=== PATIENT | female | born 1955 | race Caucasian/White ===

== ENCOUNTER 2017-07-12 17:31 | Emergency (ER) | payer MEDICARE, OTHER ==
[~2017-07-12] VITALS: Ht 165.1 cm; Wt 148.3 kg
[~2017-07-12 17:31] MED LIST: ACULAR1 DROP OD; ADVAIR 250-501 EACH INH; ASPIR-TRIN325 MG PO; CYMBALTA60 MG PO; DIFLUCAN150 MG PO; DILAUDID4 MG PO; DILAUDID8 MG PO; DOXYCYCLINE HY100 MG PO; FLONASE2 SPRAY; FUROSEMIDE40 MG PO; GABAPENTIN600 MG; KEFLEX500 MG PO; LANTUS100 UNITS/; LANTUS100 UNITS/ SUB-Q; LASIX20 MG PO; LIPITOR20 MG PO; LIPITOR40 MG PO; LISINOPRIL10 MG PO; METFORMIN HCL1000 M1 PO; MIRAPEX ER1.5 MG PO; NAPROSYN500 MG PO; NEURONTIN100 MG PO; NEURONTIN600 MG PO; NORCO 5-325 TA1 EACH PO; OCUVITE TABLET1 EAC1 PO; OPANA5 MG PO; OSTERA TABLET1 EACH PO; OXYCODONE HCL10 MG PO; OXYCODONE HCL5 MG PO; OXYCONTIN20 MG PO; PREDNISONE20 MG PO; SINGULAIR10 MG PO; SYMBICORT 16010.2 GM IH; SYMBICORT 16010.2 GM INH; VITAMIN D1000 UNI1 PO; VITAMIN D250000 UNIT PO; VITD3; XOPENEX HFA15 GM IH
[2017-07-12] MEDS ORDERED: NORTRIPTYLINE H10 MG PO (17:53)
[2017-07-12] MEDS ORDERED: CEFDINIR300 MG PO (19:22)
== END 2017-07-12 20:02 | disposition home or self-care (01) ==
LOC: ED 17:31
PROC: 0T9B70Z Drainage of Bladder with Drainage Device, Via Natural or Artificial Opening (ICD-10-PCS; principal; 2017-07-12)
DX: S89.91XA Unspecified injury of right lower leg, initial encounter (principal); N39.0 Urinary tract infection, site not specified; I10 Essential (primary) hypertension; E11.9 Type 2 diabetes mellitus without complications; J45.909 Unspecified asthma, uncomplicated; F17.200 Nicotine dependence, unspecified, uncomplicated; W19.XXXA Unspecified fall, initial encounter; Z90.49 Acquired absence of other specified parts of digestive tract; Z98.51 Tubal ligation status; Z88.2 Allergy status to sulfonamides; Z79.899 Other long term (current) drug therapy; Z79.4 Long term (current) use of insulin; Z79.82 Long term (current) use of aspirin
CPT/HCPCS: 51701; 73560; 73610; 81001; 87077; 87088; 87186; 96374; 96375; 99283; J0696; J2270

== ENCOUNTER 2018-04-21 18:51 | Emergency (ER) | payer MEDICARE, OTHER ==
[~2018-04-21] VITALS: Ht 165.1 cm; Wt 148.3 kg
[~2018-04-21 18:51] MED LIST changes: +CEFDINIR300 MG PO; +NORTRIPTYLINE H10 MG PO
[2018-04-21] MEDS ORDERED: MIRAPEX ER1.5 MG PO (19:51)
[2018-04-21] MEDS ORDERED: ZANAFLEX2 M1 PO (19:51)
[2018-04-21] MEDS ORDERED: TOPAMAX25 MG PO (19:52)
[2018-04-21] MEDS ORDERED: XOPENEX HFA15 GM INH (19:53)
== END 2018-04-21 22:19 | disposition home or self-care (01) ==
LOC: ED 18:51
DX: G89.29 Other chronic pain (principal); M25.552 Pain in left hip; E11.9 Type 2 diabetes mellitus without complications; I10 Essential (primary) hypertension; J45.909 Unspecified asthma, uncomplicated; F17.200 Nicotine dependence, unspecified, uncomplicated; Z88.2 Allergy status to sulfonamides; Z79.899 Other long term (current) drug therapy; Z79.4 Long term (current) use of insulin; Z79.82 Long term (current) use of aspirin
CPT/HCPCS: 99282

== ENCOUNTER 2018-06-02 21:36 | Emergency (ER) | payer MEDICARE, OTHER ==
[~2018-06-02] VITALS: Ht 165.1 cm; Wt 137.4 kg
[~2018-06-02 21:36] MED LIST changes: +TOPAMAX25 MG PO; +XOPENEX HFA15 GM INH; +ZANAFLEX2 M1 PO
[2018-06-02] MEDS ORDERED: VICTOZA 2-0.6 MG/0.1 SUB-Q (22:00)
[2018-06-02] MEDS ORDERED: METFORMIN HCL500 MG PO (22:00)
[2018-06-02] MEDS ORDERED: CBD (22:01)
[2018-06-02] MEDS ORDERED: HUMALOG100 UNIT/2 SUB-Q (22:02)
[2018-06-02] MEDS ORDERED: PYRIDIUM200 MG PO (23:26)
[2018-06-02] MEDS ORDERED: CEPHALEXIN500 MG PO (23:26)
== END 2018-06-02 23:34 | disposition home or self-care (01) ==
LOC: ED 21:36
DX: N39.0 Urinary tract infection, site not specified (principal); J02.9 Acute pharyngitis, unspecified; E11.9 Type 2 diabetes mellitus without complications; I10 Essential (primary) hypertension; J45.909 Unspecified asthma, uncomplicated; F17.200 Nicotine dependence, unspecified, uncomplicated; Z88.2 Allergy status to sulfonamides; Z79.899 Other long term (current) drug therapy; Z79.4 Long term (current) use of insulin; Z79.84 Long term (current) use of oral hypoglycemic drugs; Z79.82 Long term (current) use of aspirin
CPT/HCPCS: 81001; 87880; 99283

== ENCOUNTER 2018-12-14 12:19 | Emergency (ER) | payer MEDICARE, OTHER ==
[~2018-12-14] VITALS: Ht 165.1 cm; Wt 137.4 kg
[~2018-12-14 12:19] MED LIST changes: +CBD; +CEPHALEXIN500 MG PO; +HUMALOG100 UNIT/2 SUB-Q; +METFORMIN HCL500 MG PO; +PYRIDIUM200 MG PO; +VICTOZA 2-0.6 MG/0.1 SUB-Q
[2018-12-14] MEDS ORDERED: TESSALON PERLE100 MG PO (13:26)
[2018-12-14] MEDS ORDERED: ZITHROMAX250 MG PO (13:26)
[2018-12-14] MEDS ORDERED: ROBAFEN AC ORA473 ML PO (13:26)
== END 2018-12-14 13:44 | disposition home or self-care (01) ==
LOC: ED 12:19
DX: J40 Bronchitis, not specified as acute or chronic (principal); E11.9 Type 2 diabetes mellitus without complications; I10 Essential (primary) hypertension; G47.30 Sleep apnea, unspecified; F17.200 Nicotine dependence, unspecified, uncomplicated; Z88.2 Allergy status to sulfonamides; Z79.4 Long term (current) use of insulin; Z79.899 Other long term (current) drug therapy; Z79.82 Long term (current) use of aspirin
CPT/HCPCS: 71045; 99283-25

== ENCOUNTER 2019-10-31 15:29 | Observation (INO) | payer MEDICARE, OTHER ==
[~2019-10-31] VITALS: Ht 165.1 cm; Wt 135.8 kg
[~2019-10-31 15:29] MED LIST changes: -GABAPENTIN600 MG; -METFORMIN HCL500 MG PO; +ROBAFEN AC ORA473 ML PO; +TESSALON PERLE100 MG PO; +ZITHROMAX250 MG PO
[2019-10-31] MEDS ORDERED: SYMBICORT 80-10.2 GM INH (15:52)
[2019-10-31] MEDS ORDERED: CLOPIDOGREL75 MG PO (15:55)
[2019-10-31] MEDS ORDERED: TOPIRAMATE50 MG PO (15:56)
[2019-10-31] MEDS ORDERED: TIZANIDINE HCL2 MG PO (15:57)
[2019-10-31] MEDS ORDERED: ATORVASTATIN CA80 MG PO (15:58)
[2019-10-31] MEDS ORDERED: ALBUTEROL2.5 MG/3 M INH (16:35)
[2019-10-31] MEDS ORDERED: ASPIRIN325 MG PO (16:36)
[2019-10-31] MEDS ORDERED: BYDUREON B2 MG/0.85 SUB-Q (16:37)
[2019-10-31] MEDS ORDERED: PLAVIX75 MG PO (16:38)
[2019-10-31] MEDS ORDERED: FLONASE ALLERG9.9 ML NAS (16:39)
[2019-10-31] MEDS ORDERED: LASIX40 MG PO (16:40)
[2019-10-31] MEDS ORDERED: GABAPENTIN600 MG PO (16:41)
[2019-10-31] MEDS ORDERED: HUMALOG100 UNIT/1 SUB-Q (16:42)
[2019-10-31] MEDS ORDERED: ATROVENT HFA12.9 GM INH (16:43)
[2019-10-31] MEDS ORDERED: LANTUS100 UNITS/ SUB-Q (16:44)
[2019-10-31] MEDS ORDERED: METFORMIN HCL500 MG PO (16:47)
[2019-10-31] MEDS ORDERED: XOPENEX HFA15 GM INH (16:47)
[2019-10-31] MEDS ORDERED: LISINOPRIL20 MG PO (16:47)
[2019-10-31] MEDS ORDERED: METOPROLOL TART50 MG PO (16:48)
[2019-10-31] MEDS ORDERED: MIRAPEX ER1.5 MG PO (16:49)
[2019-10-31] MEDS ORDERED: SINGULAIR10 MG PO (16:50)
--- NOTE | 2019-10-31 21:42 | NUR ---
PT ARRIVED TO ROOM 127 @2015 VIA STRETCHER. PT AMBULATED TO BATHROOM AND THEN TO BED. PT STEADY ON FEET. PT STATES THAT SHE HAS CHRONIC NECK AND BACK PAIN, DENIES ANY ACUTE PAIN AT THIS TIME. LUNGS SOUND CLEAR/DIM, SATS 98-100% ON ROOM AIR. DENIES CHEST PAIN AND SOB. R.T. IN TO GIVE BREATHING TREATMENT. MEDS TAKEN WITHOUT ISSUE, SANDWICH BOX PROVIDED.
--- NOTE | 2019-10-31 23:24 | NUR ---
PT CALLED, UP TO BATHROOM WITH SBA. PT STATES SHE IS FEELING SLIGHTLY SOB, STATES "WHEN I GET HOT, IT MAKES ME COUGH." PERSONAL FAN PROVIDED FOR PATIENT. SATS REMAIN 98% ON RA. HR NO LONGER IN AFIB, NOW SINUS YASEMIN WITH OCCASIONAL PAC'S. HR:50'S.
--- NOTE | 2019-11-01 00:07 | NUR ---
ASSESSMENT COMPLETED, SEE DOCUMENTATION. PT STATES SHE NO LONGER FEELS SOB, STATES "ONLY WHEN I COUGH." DENIES CHEST PAIN. LUNGS REMAIN CLEAR/DIM SPO2 94-95% ON RA. HR REMAINS SINUS YASEMIN, RATE 54, WITH OCCASIONAL PAC'S. PT DENIES REQUESTS AT THIS TIME, CALL LIGHT WITHIN REACH.
--- NOTE | 2019-11-01 02:19 | NUR ---
PT APPEARS TO BE SLEEPING AT THIS TIME. RESPIRATIONS ARE EVEN AND UNLABORED, RR: 22, SPO2:94% ON RA, HR:57. WILL ALLOW FOR REST AND CONTINUE TO MONITOR.
--- NOTE | 2019-11-01 04:14 | NUR ---
PT CALLED, UP TO BATHROOM TO VOID, PT AMBULATES WITHOUT ASSISTANCE ONCE CABLES ARE UNPLUGGED. PT CONTINUES TO DENY PAIN. LUNGS REMAIN CLEAR/DIM, ROOM AIR. HR SINUS RHYTHM, OCCASIONAL PAC'S, RATE 60'S. STANDING WEIGHT OBTAINED. CALL LIGHT REMAINS WITHIN REACH, PT DENIES REQUESTS.
--- NOTE | 2019-11-01 05:50 | NUR ---
IN TO GIVE MORNING MEDS. PT DENIES NEEDS AT THIS TIME. CALL LIGHT WITHIN REACH.
--- NOTE | 2019-11-01 07:40 | EKG ---
[facility] [address] [place] [address] Signed Atrial fibrillation Low voltage QRS Cannot rule out Anterior infarct , age undetermined Abnormal ECG When compared with ECG of 01-MAY-2017 11:35, Atrial fibrillation has replaced Sinus rhythm Minimal criteria for Anterior infarct are now present Nonspecific T wave abnormality now evident in Inferior leads Confirmed by FIDEL WALL MD ([id number]) on 11/01/2019 7:39:42 AM Electronically Signed By: FIDEL WALL MD 11/01/19 0740 PATIENT NAME: ИВАН CORONEL Electrocardiogram DATE OF : 59 PHYSICIAN: FIDEL WALL MD REPORT #: [id number] REPORT IS CONFIDENTIAL AND NOT TO BE RELEASED WITHOUT AUTHORIZATION
--- NOTE | 2019-11-01 07:45 | NUR ---
Patient laying in bed watching tv, alert and awake. Ambulated independently to toilet, voided 350 mls. Denies SOB or dizziness with ambulation. Returns to bed independently. Vital signs taken, assessment complete. Lung sounds diminished throughout all lobes. 2+ edema noted in bilateral lower extremities. Ice chips provided, denies further needs at this time. Call light within reach.
--- NOTE | 2019-11-01 08:12 | NUR ---
Dr. Richardson in room discussing POC with patient
--- NOTE | 2019-11-01 08:45 | NUR ---
Patient sitting up at edge of bed with feet on floor. AM medications given. IV site patent. IV magnesium running at 50 mls/hr. Patient denies further needs at this time, call light within reach.
[2019-11-01] MEDS ORDERED: METFORMIN HCL500 M1 PO (09:07)
--- NOTE | 2019-11-01 09:10 | NUR ---
Case management in room with patient discussing POC
--- NOTE | 2019-11-01 09:20 | NUR ---
In and spoke with Rin. She lives in [place] in her mom's trailer who is now . She lives with her 3 sisters and alternate care for a disabled sister. Pt has lost near 100 pounds following CABG in Dec. Needs CHF education, started the Cardiac rehab program here, but stopped due to agoraphobia. She does cont. to use the foot pedal bike she used there. She is unclear what she should eat with CHF and Rn's will enter referral for Cardiac rehab and dietary. Discussed if pt has seen the Stop light protocol for CHF and she has, but does not follow currently. Will need further education. Pt states she has long history of asthma, but has not needed home 02 or nebulizer in > 6 months.
--- NOTE | 2019-11-01 09:35 | NUR ---
Imaging in room to perform ECHO. IV magnesium continues infusing at 50 mls/hr. Breakfast delivered. Patient denies further needs at this time, call light within reach.
--- NOTE | 2019-11-01 11:05 | NUR ---
Patient on telephone, sitting up at edge of bed with feet on floor. Saline locked. 100% of breakfast eaten. Cardiac nurse in room to assess, will return this afternoon. Patient denies needs at this time, call light within reach.
--- NOTE | 2019-11-01 11:47 | NUR ---
Patient ambulated to toilet, voids 350 mls. Patient reports feeling "shaky and fuzzy, just like when my blood sugar is low." BS of 214. Vital signs taken, blood pressure of 76/45 (54) and a pulse of 50. Dr. Richardson notified.
--- NOTE | 2019-11-01 11:53 | NUR ---
Patient ambulated to toilet with 2 person SBA. Patient educated on importance of "taking it slow" while walking. BM produced. Patient returned to bed with 1 person SBA. Patient states, "I feel less fuzzy than I did before." Denies further needs at this time, call light within reach.
--- NOTE | 2019-11-01 12:30 | NUR ---
Patient laying in bed, lunch delivered. Patient sits up at the edge of the bed with feet on floor. Vitals taken, blood pressure of 109/50 (65) and pulse of 54. 3 units of insulin given with meal. Patient states "I don't feel fuzzy anymore." Denies further needs at this time, call light within reach.
--- NOTE | 2019-11-01 13:57 | NUR ---
Certified Heart Failure Nurse Notes: Consultation recieved for CHF education. Two unsuccessful attempts to visit with patient today. Patient known to this service- had initiated cardiac rehabilitation in May for CABG and ID. Attended a few session patient states dropped out of program due to agraphobia. At that time PHQ-9 score was 15. Will return to talk to patient about heart failure management and to encourage resuming cardiac rehab if able. Date of echocardiogram -pending Admit Wt.: 137.22 kg Admit BNP: 609
--- NOTE | 2019-11-01 14:00 | NUR ---
PATIENT RESTING IN BED AT THIS TIME. PT DENIES FEELING "FUZZY" OR LIGHTHEADED AT THIS TIME, BUT BLOOD PRESSURES ARE STILL LOW. 1300 DOSE OF LASIX BEING HELD. WILL CONTINUE TO MONITOR CLOSELY.
--- NOTE | 2019-11-01 14:34 | NUR ---
BLOOD PRESSURES HAVE CONTINUED TO RUN LOW. DR. WALL UPDATED AGAIN AND 1300 DOSE OF LASIX STILL BEING HELD. 1500 LABS TO BE DRAWN. PT RESTING AND DENIES FURTHER NEEDS. LAST BP 107/43. CONTINUE TO MONITOR.
[2019-11-01] MEDS ORDERED: APPLE CIDER VI300 MG PO (17:28)
[2019-11-01] MEDS ORDERED: CINNAMON500 MG PO (17:29)
[2019-11-01] MEDS ORDERED: VITAMIN D32000 UNI1 PO (17:29)
[2019-11-01] MEDS ORDERED: VITAMIN C500 M1 PO (17:29)
[2019-11-01] MEDS ORDERED: SYMBICORT 80-10.2 GM INH (17:30)
[2019-11-01] MEDS ORDERED: ACULAR5 ML OP (17:31)
[2019-11-01] MEDS ORDERED: PROMETHAZINE-C473 ML PO (17:32)
--- NOTE | 2019-11-01 18:58 | NUR ---
PATIENT FINISHING HER DESSERT AND TOLERATED DINNER WELL. CHF AND AFIB EDUCATION PROVIDED AT LENGTH. PT ALSO HAD A GOOD VISIT WITH CHF EDUCATOR. PT'S SISTER IN ROOM AND ATTENTIVE TO PATIENT. PT'S WEIGHT 302.1 LB AT THIS TIME.
--- NOTE | 2019-11-01 19:48 | NUR ---
SHIFT REPORT RECEIVED FROM JANIE CHOW. PT CALLED, UP TO BATHROOM WITHOUT ASSISTANCE ONCE CORDS WERE UNPLUGGED, STEADY ON FEET. PT SLIGHTLY SOB WITH ACTIVITY, RETURNED TO BED. PT DENIES PAIN AT THIS TIME. CALL LIGHT WITHIN REACH, DENIES REQUESTS AT THIS TIME.
--- NOTE | 2019-11-01 20:27 | NUR ---
ASSESSMENT COMPLETED, SEE DOCUMENTATION. LUNGS SOUND CLEAR/DIM, MORE AERATION NOTED COMPARED TO LAST NIGHT. DENIES CHEST PAIN AND SOB. IV PATENT, SALINE LOCKED. EVENING MEDICATIONS TAKEN WITHOUT ISSUE. VITAL SIGNS STABLE. PT DENIES NEEDS, CALL LIGHT WITHIN REACH. DISCUSSED PLAN OF CARE FOR THE NIGHT, QUESTIONS ANSWERED.
--- NOTE | 2019-11-01 21:47 | NUR ---
PT AMBULATED TO BATHROOM, VOIDED 400ML AND RETURNED TO BED. PT TOLERATED WELL. NO FURTHER REQUESTS AT THIS TIME.
--- NOTE | 2019-11-02 00:06 | NUR ---
PT SLEEPING SOUNDLY AT THIS TIME, NO APPARENT DISTRESS. RESPIRATIONS EVEN AND UNLABORED. HR: 58, RR: 20. WILL ALLOW FOR REST AND CONTINUE TO MONITOR.
--- NOTE | 2019-11-02 00:38 | NUR ---
PT CALLED, UP TO BATHROOM TO VOID 800ML AND THEN RETURNED TO BED, TOLERATED WELL. ASSESSMENT COMPLETED, NO CHANGES FROM PREVIOUS. VITAL SIGNS STABLE. NO FUTHER REQUESTS, CALL LIGHT WITHIN REACH.
--- NOTE | 2019-11-02 02:21 | NUR ---
PT SLEEPING, NO APPARENT DISTRESS. RESPIRATIONS EVEN AND UNLABORED. RR:22, HR:59. WILL ALLOW FOR REST AND CONTINUE TO MONITOR.
--- NOTE | 2019-11-02 05:15 | NUR ---
ASSESSMENT COMPLETED, NO CHANGES FROM PREVIOUS. PT UP TO BATHROOM, VOIDED 500ML AND RETURNED TO BED. PT TOLERATED ACTIVITY WELL. VITAL SIGNS STABLE. STANDING WEIGHT THIS MORNIN.4 LBS. CALL LIGHT WITHIN REACH, PT DENIES REQUESTS.
--- NOTE | 2019-11-02 08:18 | NUR ---
PATIENT UUP AND SITTING AT BEDSIDE THIS AM. DENIES ANY FEELING OF SHORTNESS OF BREATH OR THE "CHEST TIGHTNESS". PT EAGER TO GO HOME TODAY. PT AMB TO BATHROOM TO VOID 500 ML. PLAN IS FOR PATIENT TO LIKELY D/C HOME TODAY, AFTER ECHO RESULTS ARE BACK. BREAKFAST ORDERED. ASSESSMENT COMPLETE. DENIES FURTHER NEEDS.
[2019-11-02] MEDS ORDERED: LISINOPRIL10 MG PO (09:49)
[2019-11-02] MEDS ORDERED: POTASSIUM CHLO10 ME1 PO (09:50)
--- NOTE | 2019-11-02 10:42 | NUR ---
PATIENT TO D/C HOME. PT UP TO BATHROOM TO VOID AGAIN. WAITING ON PHARMACY TO SEE PATIENT BEFORE D/C.
== END 2019-11-02 11:06 | disposition home or self-care (01) ==
LOC: ED 15:29 → CCU 15:31
PROVIDERS: ADMIT Internal Medicine
DX: I11.0 Hypertensive heart disease with heart failure (principal); I50.9 Heart failure, unspecified; E11.40 Type 2 diabetes mellitus with diabetic neuropathy, unspecified; G25.81 Restless legs syndrome; G47.30 Sleep apnea, unspecified; M48.02 Spinal stenosis, cervical region; J42 Unspecified chronic bronchitis; J45.909 Unspecified asthma, uncomplicated; E78.5 Hyperlipidemia, unspecified; I25.2 Old myocardial infarction; I48.91 Unspecified atrial fibrillation; I25.10 Atherosclerotic heart disease of native coronary artery without angina pectoris; E83.42 Hypomagnesemia; Z88.2 Allergy status to sulfonamides; Z91.11 Patient's noncompliance with dietary regimen; Z87.891 Personal history of nicotine dependence; Z79.02 Long term (current) use of antithrombotics/antiplatelets; Z95.1 Presence of aortocoronary bypass graft; Z79.82 Long term (current) use of aspirin; Z79.4 Long term (current) use of insulin; Z79.51 Long term (current) use of inhaled steroids; Z79.899 Other long term (current) drug therapy
CPT/HCPCS: 36415; 71045; 80048; 80053; 83735; 83880; 84443; 84484; 85025; 85610; 93005; 93010; 93306; 94640; 96361; 96365; 96374; 96376; 99284-25; G0378; J1650; J1815; J1940; J3475; J7040

== ENCOUNTER 2019-12-22 23:00 | Emergency (ER) | payer MEDICARE, OTHER ==
[~2019-12-22] VITALS: Ht 165.1 cm; Wt 135.6 kg
[~2019-12-22 23:00] MED LIST changes: +ACULAR5 ML OP; +ALBUTEROL2.5 MG/3 M INH; +APPLE CIDER VI300 MG PO; +ASPIRIN325 MG PO; +ATORVASTATIN CA80 MG PO; +ATROVENT HFA12.9 GM INH; +BYDUREON B2 MG/0.85 SUB-Q; +CINNAMON500 MG PO; +CLOPIDOGREL75 MG PO; +FLONASE ALLERG9.9 ML NAS; +GABAPENTIN600 MG PO; +HUMALOG100 UNIT/1 SUB-Q; +LASIX40 MG PO; +LISINOPRIL20 MG PO; +METFORMIN HCL500 M1 PO; +METFORMIN HCL500 MG PO; +METOPROLOL TART50 MG PO; +PLAVIX75 MG PO; +POTASSIUM CHLO10 ME1 PO; +PROMETHAZINE-C473 ML PO; +SYMBICORT 80-10.2 GM INH; +TIZANIDINE HCL2 MG PO; +TOPIRAMATE50 MG PO; +VITAMIN C500 M1 PO; +VITAMIN D32000 UNI1 PO
[2019-12-23] MEDS ORDERED: ULTRAM50 MG PO (01:11)
--- NOTE | 2019-12-23 13:31 | EKG ---
[facility] [address] [place] [address] Signed Normal sinus rhythm Low voltage QRS Cannot rule out Anterior infarct (cited on or before 31-OCT-2019) Abnormal ECG When compared with ECG of 31-OCT-2019 15:38, Sinus rhythm has replaced Atrial fibrillation Confirmed by AYDEN CHARLES MD ([id number]) on 12/23/2019 1:31:20 PM Electronically Signed By: AYDEN CHARLES MD 12/23/19 1331 PATIENT NAME: ИВАН CORONEL Electrocardiogram DATE OF : 59 PHYSICIAN: AYDEN CHARLES MD REPORT #: [id number] REPORT IS CONFIDENTIAL AND NOT TO BE RELEASED WITHOUT AUTHORIZATION
== END 2019-12-23 01:21 | disposition home or self-care (01) ==
LOC: ED 23:00
DX: R07.89 Other chest pain (principal); E11.9 Type 2 diabetes mellitus without complications; I10 Essential (primary) hypertension; Z87.891 Personal history of nicotine dependence; Z88.2 Allergy status to sulfonamides; Z79.899 Other long term (current) drug therapy
CPT/HCPCS: 71046; 93005; 93010; 99285-25

== ENCOUNTER 2021-02-19 16:17 | Emergency (ER) | payer MEDICARE, OTHER ==
[~2021-02-19] VITALS: Ht 165.1 cm; Wt 137.0 kg
[~2021-02-19 16:17] MED LIST changes: +ULTRAM50 MG PO
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
[2021-02-19] MEDS ORDERED: WARFARIN SODIUM5 MG PO (16:36)
--- NOTE | 2021-02-20 13:46 | EKG ---
[facility] [address] [place] [address] Signed Atrial fibrillation Abnormal QRS-T angle, consider primary T wave abnormality Abnormal ECG When compared with ECG of 27-JAN-2021 00:05, Inverted T waves have replaced nonspecific T wave abnormality in Inferior leads Confirmed by AYDEN CHARLES MD ([id number]) on 02/20/2021 1:46:16 PM Electronically Signed By: AYDEN CHARLES MD 02/20/21 1346 PATIENT NAME: ИВАН CORONEL Electrocardiogram DATE OF : 59 PHYSICIAN: AYDEN CHARLES MD REPORT #: [id number] REPORT IS CONFIDENTIAL AND NOT TO BE RELEASED WITHOUT AUTHORIZATION
== END 2021-02-19 18:54 | disposition home or self-care (01) ==
LOC: ED 16:17
DX: R07.89 Other chest pain (principal); E11.9 Type 2 diabetes mellitus without complications; I10 Essential (primary) hypertension; G47.30 Sleep apnea, unspecified; F17.200 Nicotine dependence, unspecified, uncomplicated; Z88.2 Allergy status to sulfonamides; Z79.899 Other long term (current) drug therapy; Z79.01 Long term (current) use of anticoagulants; Z79.4 Long term (current) use of insulin
CPT/HCPCS: 71046; 80053; 81001; 83735; 84484; 85025; 85610; 93005; 93010; 99285-25; 99406

== ENCOUNTER 2021-11-11 17:12 | Emergency (ER) | payer MEDICARE, OTHER ==
[~2021-11-11] VITALS: Ht 165.1 cm; Wt 131.5 kg
[~2021-11-11 17:12] MED LIST changes: +WARFARIN SODIUM5 MG PO
--- OUTSIDE RECORDS SUMMARY | 2021-11-11 17:14 | XMS ---
PreManage Notification: ИВАН CORONEL Security Program Instructor Events No recent Security Events currently on file [facility] JESS NICHOLAS Internal Medicine: Cardiovascular Disease 11/07/2019-Current PHONE: Unknown LUCAS VALLEJO Physician Fur Dyer 11/07/2019-Current PHONE: [phone] [facility] has no Care Guidelines for this patient. Care History Medical/Surgical 02/20/2021 [facility] - PATIENT HAS A TABLE GAMES SUPERVISOR DR NICHOLAS AT [facility]- [phone] - LAST APT WITH TABLE GAMES SUPERVISOR 07/05/2020 NEXT APT SCHEDULED 02/28/2021 - RECENT ED VISIT RECORDS SENT TO TABLE GAMES SUPERVISOR FOR REVIEW PER REQUEST. 01/28/2021 [facility] - PATIENT WAS LAST SEEN BY PCP NOVEMBER 2020 AND HAD A VIRTUAL VISIT WITH PROVIDER DECEMBER 2020. PROVIDER OFFICE JUST RECEIVED PATIENT RECENT ED VISIT NOTE AND WILL CONTACT PATIENT TODAY FOR A FOLLOW UP APT. E.DMichael VISIT COUNT (12 MO.) [address] [facility] TOTAL 4 NOTE: Visits indicate total known visits. ED/UCC VISIT TRACKING (12 MO.) 11/11/2021 17:13 [facility] [place] TYPE: Emergency COMPLAINT: - VOMITING 02/19/2021 16:20 [facility] [place] TYPE: Emergency COMPLAINT: - CHEST PAIN DIAGNOSES: - Other chest pain - Sleep apnea, unspecified - Essential (primary) hypertension - Nicotine dependence, unspecified, uncomplicated - Other mcfp (current) drug therapy - extermination inspector (current) use of anticoagulants - custodial (current) use of insulin - Allergy status to sulfonamides - Nicotine dependence, cigarettes, uncomplicated - Type 2 diabetes mellitus without complications 01/26/2021 23:31 [facility] [place] TYPE: Emergency COMPLAINT: - TIRED, SWEATY, FELL DIAGNOSES: - Type 2 diabetes mellitus without complications - Other mcfp (current) drug therapy - extermination inspector (current) use of aspirin - Nicotine dependence, unspecified, uncomplicated - Essential (primary) hypertension - Allergy status to sulfonamides - Syncope and collapse - Sleep apnea, unspecified - custodial (current) use of insulin - Urinary tract infection, site not specified 11/29/2020 18:57 [facility] [place] TYPE: Emergency COMPLAINT: - SYNCOPE DIAGNOSES: - Sleep apnea, unspecified - Unspecified asthma, uncomplicated - custodial (current) use of aspirin - Nicotine dependence, unspecified, uncomplicated - Fall on same level, unspecified, initial encounter - Allergy status to sulfonamides - Unspecified injury of unspecified muscle, fascia and tendon at wrist and hand level, left hand, initial encounter - extermination inspector (current) use of insulin - Other mcfp (current) drug therapy - Laceration without foreign body of nose, initial encounter - Type 2 diabetes mellitus without complications - Essential (primary) hypertension - Syncope and collapse INPATIENT VISIT TRACKING (12 MO.) No inpatient visits to display in this time frame [email or web address]
[2021-11-11] MEDS ORDERED: PRILOSEC OTC20 MG PO (21:45)
--- NOTE | 2021-11-12 09:05 | EKG ---
[facility] [address] [place], [place] [address] Signed Atrial fibrillation Abnormal ECG When compared with ECG of 19-FEB-2021 16:24, No significant change was found Confirmed by AYDEN CHARLES MD ([id number]) on 11/12/2021 9:05:43 AM Electronically Signed By: AYDEN CHARLES MD 11/12/21904 PATIENT NAME: ИВАН CORONEL [place] Electrocardiogram DATE OF : 59 PHYSICIAN: AYDEN CHARLES MD REPORT #: [id number] REPORT IS CONFIDENTIAL AND NOT TO BE RELEASED WITHOUT AUTHORIZATION
== END 2021-11-11 22:00 | disposition home or self-care (01) ==
LOC: ED 17:12
DX: R10.13 Epigastric pain (principal); R10.11 Right upper quadrant pain; R51.9 Headache, unspecified; E11.9 Type 2 diabetes mellitus without complications; I10 Essential (primary) hypertension; G47.30 Sleep apnea, unspecified; I48.91 Unspecified atrial fibrillation; J45.909 Unspecified asthma, uncomplicated; F17.200 Nicotine dependence, unspecified, uncomplicated; Z88.2 Allergy status to sulfonamides; Z79.899 Other long term (current) drug therapy; Z79.01 Long term (current) use of anticoagulants; Z79.4 Long term (current) use of insulin; Z79.84 Long term (current) use of oral hypoglycemic drugs
CPT/HCPCS: 70450; 74177; 80053; 83690; 84484; 85025; 93005; 93010; 96374; 99284-25; J2405

== ENCOUNTER 2022-03-26 09:34 | Emergency (ER) | payer MEDICARE, OTHER ==
[~2022-03-26] VITALS: Ht 165.1 cm; Wt 128.4 kg
[~2022-03-26 09:34] MED LIST changes: +PRILOSEC OTC20 MG PO
--- OUTSIDE RECORDS SUMMARY | 2022-03-26 09:36 | XMS ---
PreManage Notification: ИВАН CORONEL Security Homogenizer Operator Events No recent Security Events currently on file [facility] J[facility]ICHOLAS Internal Medicine: Cardiovascular Disease 11/07/2019-Current PHONE: Unknown LUCAS VALLEJO Physician Digital Marketing Associate 11/12/2021-Current PHONE: [phone] [facility] has no Care Guidelines for this patient. Care History Medical/Surgical 02/20/2021 [facility] - PATIENT HAS A GEOSPATIAL SYSTEMS INTEGRATOR DR NICHOLAS AT [facility]- [phone] - LAST APT WITH GEOSPATIAL SYSTEMS INTEGRATOR 07/05/2020 NEXT APT SCHEDULED 02/28/2021 - RECENT ED VISIT RECORDS SENT TO GEOSPATIAL SYSTEMS INTEGRATOR FOR REVIEW PER REQUEST. 01/28/2021 [facility] - PATIENT WAS LAST SEEN BY PCP NOVEMBER 2020 AND HAD A VIRTUAL VISIT WITH PROVIDER DECEMBER 2020. PROVIDER OFFICE JUST RECEIVED PATIENT RECENT ED VISIT NOTE AND WILL CONTACT PATIENT TODAY FOR A FOLLOW UP APT. E.DMichael VISIT COUNT (12 MO.) [address] [facility] TOTAL 2 NOTE: Visits indicate total known visits. ED/UCC VISIT TRACKING (12 MO.) 03/26/2022 09:[address] [facility] [place] TYPE: Emergency COMPLAINT: - POST SURGERY BLEEDING 11/11/2021 17:13 [facility] [place] TYPE: Emergency COMPLAINT: - VOMITING DIAGNOSES: - Unspecified asthma, uncomplicated - Unspecified atrial fibrillation - Essential (primary) hypertension - Other senior living (current) drug therapy - Nicotine dependence, unspecified, uncomplicated - Epigastric pain - manager long term care (current) use of oral hypoglycemic drugs - Right upper quadrant pain - Allergy status to sulfonamides - Type 2 diabetes mellitus without complications - Sleep apnea, unspecified - Headache, unspecified - manager long term care (current) use of insulin - [facility] (current) use of anticoagulants INPATIENT VISIT TRACKING (12 MO.) 03/25/2022 06:50 [facility] [place] TYPE: Surgery DIAGNOSES: - Primary osteoarthritis, right shoulder [id number]
[2022-03-26] MEDS ORDERED: FARXIGA10 MG PO (09:54)
[2022-03-26] MEDS ORDERED: DIFLUCAN150 MG PO (09:55)
[2022-03-26] MEDS ORDERED: LIPOIC ACID25 GM PO (09:57)
[2022-03-26] MEDS ORDERED: ELIQUIS5 MG PO (09:58)
[2022-03-26] MEDS ORDERED: ADVAIR 100-501 EACH INH (10:01)
[2022-03-26] MEDS ORDERED: ASPIRIN81 MG PO (10:02)
[2022-03-26] MEDS ORDERED: EZETIMIBE10 MG PO (10:02)
[2022-03-26] MEDS ORDERED: SINGULAIR10 MG PO (10:03)
[2022-03-26] MEDS ORDERED: NITROGLYCERIN0.4 MG SL (10:05)
[2022-03-26] MEDS ORDERED: LIPITOR80 MG PO (10:07)
[2022-03-26] MEDS ORDERED: MORPHINE SULFAT15 M1 PO (10:08)
[2022-03-26] MEDS ORDERED: OXYCODONE HCL5 MG PO (10:08)
[2022-03-26] MEDS ORDERED: XOPENEX1.25 MG/3 INH (10:09)
== END 2022-03-26 10:50 | disposition home or self-care (01) ==
LOC: ED 09:34
DX: M96.830 Postprocedural hemorrhage of a musculoskeletal structure following a musculoskeletal system procedure (principal); E11.9 Type 2 diabetes mellitus without complications; I10 Essential (primary) hypertension; G47.30 Sleep apnea, unspecified; I48.91 Unspecified atrial fibrillation; F17.200 Nicotine dependence, unspecified, uncomplicated; Z88.2 Allergy status to sulfonamides; Z79.899 Other long term (current) drug therapy; Z79.01 Long term (current) use of anticoagulants; Z79.84 Long term (current) use of oral hypoglycemic drugs; Z79.4 Long term (current) use of insulin; Z79.82 Long term (current) use of aspirin
CPT/HCPCS: 99283

== ENCOUNTER 2022-04-10 03:15 | Emergency (ER) | payer MEDICARE, OTHER ==
[~2022-04-10] VITALS: Ht 165.1 cm; Wt 129.0 kg
[~2022-04-10 03:15] MED LIST changes: +ADVAIR 100-501 EACH INH; +ASPIRIN81 MG PO; +ELIQUIS5 MG PO; +EZETIMIBE10 MG PO; +FARXIGA10 MG PO; +LIPITOR80 MG PO; +LIPOIC ACID25 GM PO; +MORPHINE SULFAT15 M1 PO; +NITROGLYCERIN0.4 MG SL; +XOPENEX1.25 MG/3 INH
--- OUTSIDE RECORDS SUMMARY | 2022-04-10 03:18 | XMS ---
PreManage Notification: ИВАН CORONEL Security Associate Software Application Engineer Events No recent Security Events currently on file CRITERIA MET - [facility] - [facility] - 2 Visits in 30 Days CARE PROVIDERS JESS NICHOLAS Internal Medicine: Cardiovascular Disease 11/07/2019-Current PHONE: Unknown LUCAS VALLEJO Physician Wood Last Maker 11/12/2021-Current PHONE: [phone] [facility] has no Care Guidelines for this patient. Care History Medical/Surgical 02/20/2021 [facility] - PATIENT HAS A SOFTWARE TEAM LEADER DR NICHOLAS AT [facility]- [phone] - LAST APT WITH SOFTWARE TEAM LEADER 07/05/2020 NEXT APT SCHEDULED 02/28/2021 - RECENT ED VISIT RECORDS SENT TO SOFTWARE TEAM LEADER FOR REVIEW PER REQUEST. 01/28/2021 [facility] - PATIENT WAS LAST SEEN BY PCP NOVEMBER 2020 AND HAD A VIRTUAL VISIT WITH PROVIDER DECEMBER 2020. PROVIDER OFFICE JUST RECEIVED PATIENT RECENT ED VISIT NOTE AND WILL CONTACT PATIENT TODAY FOR A FOLLOW UP APT. E.D. VISIT COUNT (12 MO.) 3 [facility] TOTAL 3 NOTE: Visits indicate total known visits. ED/UCC VISIT TRACKING (12 MO.) 04/10/2022 03:15 [facility] [place] TYPE: Emergency COMPLAINT: - POST OP PROBLEM 03/26/2022 09:35 [facility] [place] TYPE: Emergency COMPLAINT: - POST SURGERY BLEEDING DIAGNOSES: - Allergy status to sulfonamides - Nicotine dependence, unspecified, uncomplicated - Postprocedural hemorrhage of a musculoskeletal structure following a musculoskeletal system procedure - Type 2 diabetes mellitus without complications - drying room attendant (current) use of anticoagulants - [facility] (current) use of aspirin - Essential (primary) hypertension - [facility] (current) use of oral hypoglycemic drugs - drying room attendant (current) use of insulin - Other sales representative printing paper (current) drug therapy - Unspecified atrial fibrillation - Sleep apnea, unspecified 11/11/2021 17:13 [facility] [place] TYPE: Emergency COMPLAINT: - VOMITING DIAGNOSES: - Unspecified asthma, uncomplicated - Unspecified atrial fibrillation - Essential (primary) hypertension - Other sales representative printing paper (current) drug therapy - Nicotine dependence, unspecified, uncomplicated - Epigastric pain - drying room attendant (current) use of oral hypoglycemic drugs - Right upper quadrant pain - Allergy status to sulfonamides - Type 2 diabetes mellitus without complications - Sleep apnea, unspecified - Headache, unspecified - [facility] (current) use of insulin - [facility] (current) use of anticoagulants INPATIENT VISIT TRACKING (12 MO.) 04/08/2022 13:50 [facility] [place] TYPE: Surgery COMPLAINT: - SHOULDER ARTHROPLASTY, TOTAL, REVISION DIAGNOSES: - SHOULDER ARTHROPLASTY, TOTAL, REVISION 03/25/2022 06:50 [facility] [place] TYPE: Surgery DIAGNOSES: - Primary osteoarthritis, right shoulder [id number]
[2022-04-10] MEDS ORDERED: FARXIGA10 MG PO (03:38)
== END 2022-04-10 04:31 | disposition home or self-care (01) ==
LOC: ED 03:15
DX: M96.89 Other intraoperative and postprocedural complications and disorders of the musculoskeletal system (principal); E11.9 Type 2 diabetes mellitus without complications; I10 Essential (primary) hypertension; G25.81 Restless legs syndrome; G47.30 Sleep apnea, unspecified; J45.909 Unspecified asthma, uncomplicated; I48.91 Unspecified atrial fibrillation; F17.200 Nicotine dependence, unspecified, uncomplicated; Z88.2 Allergy status to sulfonamides; Z88.8 Allergy status to other drugs, medicaments and biological substances; Z79.899 Other long term (current) drug therapy; Z79.82 Long term (current) use of aspirin; Z79.4 Long term (current) use of insulin; Z79.01 Long term (current) use of anticoagulants
CPT/HCPCS: 99283

== ENCOUNTER 2022-12-26 10:36 | Emergency (ER) | payer MEDICARE, OTHER ==
[~2022-12-26] VITALS: Ht 165.1 cm; Wt 128.8 kg
--- OUTSIDE RECORDS SUMMARY | 2022-12-26 10:40 | XMS ---
PreManage Notification: ИВАН CORONEL Security [employer] Roustabout Events No recent Security Events currently on file CRITERIA MET - [facility] CARE PROVIDERS JESS NICHOLAS Internal Medicine: Cardiovascular Disease 11/07/2019-Current PHONE: Unknown LUCAS VALLEJO Physician Machine Folder 11/12/2021-Current PHONE: [phone] [facility] has no Care Guidelines for this patient. Care History Medical/Surgical 02/20/2021 [facility] - PATIENT HAS A ASSOCIATE PRODUCT MANAGER DR NICHOLAS AT [facility] CARDIOLOG[facility]- [phone] - LAST APT WITH ASSOCIATE PRODUCT MANAGER 07/05/2020 NEXT APT SCHEDULED 02/28/2021 - RECENT ED VISIT RECORDS SENT TO ASSOCIATE PRODUCT MANAGER FOR REVIEW PER REQUEST. 01/28/2021 [facility] - PATIENT WAS LAST SEEN BY PCP NOVEMBER 2020 AND HAD A VIRTUAL VISIT WITH PROVIDER DECEMBER 2020. PROVIDER OFFICE JUST RECEIVED PATIENT RECENT ED VISIT NOTE AND WILL CONTACT PATIENT TODAY FOR A FOLLOW UP APT. E.DMichael VISIT COUNT (12 MO.) [address] [facility] TOTAL 3 NOTE: Visits indicate total known visits. ED/UCC VISIT TRACKING (12 MO.) 12/26/2022 10:37 [facility] [place] TYPE: Emergency COMPLAINT: - COUGH, CHEST PRESSURE, DIZZY 04/10/2022 03:15 [facility] [place] TYPE: Emergency COMPLAINT: - POST OP PROBLEM DIAGNOSES: - Other termite control service representative (current) drug therapy - Allergy status to sulfonamides - USP (current) use of anticoagulants - Other complications of procedures, not elsewhere classified, initial encounter - Type 2 diabetes mellitus without complications - marine oil terminal superintendent (current) use of aspirin - Other intraoperative and postprocedural complications and disorders of the musculoskeletal system - marine oil terminal superintendent (current) use of insulin - Allergy status to other drugs, medicaments and biological substances - Sleep apnea, unspecified - Essential (primary) hypertension - Nicotine dependence, unspecified, uncomplicated - Unspecified atrial fibrillation - Unspecified asthma, uncomplicated - Restless legs syndrome 03/26/2022 09:35 [facility] [place] TYPE: Emergency COMPLAINT: - POST SURGERY BLEEDING DIAGNOSES: - Sleep apnea, unspecified - Postprocedural hemorrhage of a musculoskeletal structure following a musculoskeletal system procedure - Other intermediate (current) drug therapy - Allergy status to sulfonamides - USP (current) use of oral hypoglycemic drugs - marine oil terminal superintendent (current) use of aspirin - Type 2 diabetes mellitus without complications - Unspecified atrial fibrillation - Nicotine dependence, unspecified, uncomplicated - USP (current) use of insulin - Essential (primary) hypertension - USP (current) use of anticoagulants INPATIENT VISIT TRACKING (12 MO.) 04/08/2022 13:50 [facility] [place] TYPE: Surgery COMPLAINT: - SHOULDER ARTHROPLASTY, TOTAL, REVISION DIAGNOSES: - SHOULDER ARTHROPLASTY, TOTAL, REVISION 03/25/2022 06:50 [facility] [place] TYPE: Surgery DIAGNOSES: - Primary osteoarthritis, right shoulder [email or web address]
[2022-12-26] MEDS ORDERED: PROAIR HFA8.5 GM INH (13:08)
--- NOTE | 2022-12-28 12:23 | EKG ---
[facility] [address] [facility] [place] [address] Signed Atrial fibrillation Nonspecific T wave abnormality Abnormal ECG When compared with ECG of 11-NOV-2021 19:00, Nonspecific T wave abnormality now evident in Anterior leads Confirmed by Kavin Silverman MD () on 12/28/2022 12:22:53 PM Electronically Signed By: KAVIN SILVERMAN MD 12/28/22 1223 PATIENT NAME: ИВАН CORONEL Electrocardiogram DATE OF : 59 PHYSICIAN: KAVIN SILVERMAN MD REPORT #: [id number] REPORT IS CONFIDENTIAL AND NOT TO BE RELEASED WITHOUT AUTHORIZATION
== END 2022-12-26 13:23 | disposition home or self-care (01) ==
LOC: ED 10:36
DX: J06.9 Acute upper respiratory infection, unspecified (principal); E11.9 Type 2 diabetes mellitus without complications; I10 Essential (primary) hypertension; G47.30 Sleep apnea, unspecified; J45.909 Unspecified asthma, uncomplicated; I48.91 Unspecified atrial fibrillation; F17.200 Nicotine dependence, unspecified, uncomplicated; Z88.2 Allergy status to sulfonamides; Z88.8 Allergy status to other drugs, medicaments and biological substances; Z79.899 Other long term (current) drug therapy; Z79.4 Long term (current) use of insulin; Z79.01 Long term (current) use of anticoagulants; Z79.82 Long term (current) use of aspirin; Z20.822 Contact with and (suspected) exposure to COVID-19
CPT/HCPCS: 36415; 71045; 80053; 83735; 84484; 85025; 87502; 99284-25; C9803; U0003

== ENCOUNTER 2023-01-01 13:44 | Emergency (ER) | payer MEDICARE, OTHER ==
[~2023-01-01] VITALS: Ht 165.1 cm; Wt 120.2 kg
[~2023-01-01 13:44] MED LIST changes: +PROAIR HFA8.5 GM INH
--- OUTSIDE RECORDS SUMMARY | 2023-01-01 13:47 | XMS ---
PreManage Notification: ИВАН CORONEL Security Associate Director Events No recent Security Events currently on file CRITERIA MET - [facility] - 2 Visits in 30 Days - [facility] CARE PROVIDERS JESS NICHOLAS Internal Medicine: Cardiovascular Disease 11/07/2019-Current PHONE: Unknown LUCAS VALLEJO Physician Classroom Aide 11/12/2021-Current PHONE: [phone] [facility] has no Care Guidelines for this patient. Care History Medical/Surgical 02/20/2021 [facility] - PATIENT HAS A BACCARAT DEALER DR NICHOLAS AT LOC[facility]IN [facility] CARDIOLOGY- [phone] - LAST APT WITH BACCARAT DEALER 07/05/2020 NEXT APT SCHEDULED 02/28/2021 - RECENT ED VISIT RECORDS SENT TO BACCARAT DEALER FOR REVIEW PER REQUEST. 01/28/2021 [facility] - PATIENT WAS LAST SEEN BY PCP NOVEMBER 2020 AND HAD A VIRTUAL VISIT WITH PROVIDER DECEMBER 2020. PROVIDER OFFICE JUST RECEIVED PATIENT RECENT ED VISIT NOTE AND WILL CONTACT PATIENT TODAY FOR A FOLLOW UP APT. E.D. VISIT COUNT (12 MO.) [address] [facility] TOTAL 4 NOTE: Visits indicate total known visits. ED/UCC VISIT TRACKING (12 MO.) 01/01/2023 13:44 [facility] [place] TYPE: Emergency COMPLAINT: - COUGH 12/26/2022 10:37 [facility] [place] TYPE: Emergency COMPLAINT: - COUGH, CHEST PRESSURE, DIZZY DIAGNOSES: - Contact with and (suspected) exposure to COVID-19 - Essential (primary) hypertension - Unspecified asthma, uncomplicated - shelter (current) use of aspirin - Allergy status to other drugs, medicaments and biological substances - Other fci (current) drug therapy - Sleep apnea, unspecified - Unspecified atrial fibrillation - Cough, unspecified - Allergy status to sulfonamides - Nicotine dependence, unspecified, uncomplicated - Acute upper respiratory infection, unspecified - shelter (current) use of anticoagulants - shelter (current) use of insulin - Type 2 diabetes mellitus without complications 04/10/2022 03:15 [facility] [place] TYPE: Emergency COMPLAINT: - POST OP PROBLEM DIAGNOSES: - shelter (current) use of anticoagulants - Other complications of procedures, not elsewhere classified, initial encounter - Type 2 diabetes mellitus without complications - shelter (current) use of aspirin - Other intraoperative and postprocedural complications and disorders of the musculoskeletal system - shelter (current) use of insulin - Allergy status to other drugs, medicaments and biological substances - Sleep apnea, unspecified - Essential (primary) hypertension - Nicotine dependence, unspecified, uncomplicated - Unspecified atrial fibrillation - Unspecified asthma, uncomplicated - Restless legs syndrome - Other computer terminal operator (current) drug therapy - Allergy status to sulfonamides 03/26/2022 09:35 [facility] [place] TYPE: Emergency COMPLAINT: - POST SURGERY BLEEDING DIAGNOSES: - Other fci (current) drug therapy - Allergy status to sulfonamides - medical terminologist (current) use of oral hypoglycemic drugs - medical terminologist (current) use of aspirin - Type 2 diabetes mellitus without complications - Unspecified atrial fibrillation - Nicotine dependence, unspecified, uncomplicated - medical terminologist (current) use of insulin - Essential (primary) hypertension - shelter (current) use of anticoagulants - Sleep apnea, unspecified - Postprocedural hemorrhage of a musculoskeletal structure following a musculoskeletal system procedure INPATIENT VISIT TRACKING (12 MO.) 04/08/2022 13:50 [facility] [place] TYPE: Surgery COMPLAINT: - SHOULDER ARTHROPLASTY, TOTAL, REVISION DIAGNOSES: - SHOULDER ARTHROPLASTY, TOTAL, REVISION 03/25/2022 06:50 [facility] [place] TYPE: Surgery DIAGNOSES: - Primary osteoarthritis, right shoulder [email or web address]
[2023-01-01] MEDS ORDERED: PREDNISONE20 MG PO (17:33)
[2023-01-01] MEDS ORDERED: IPRATROPIU0.2 MG/1 M INH (17:33)
[2023-01-01] MEDS ORDERED: BENZONATATE100 MG PO (17:33)
== END 2023-01-01 17:43 | disposition home or self-care (01) ==
LOC: ED 13:44
DX: J44.1 Chronic obstructive pulmonary disease with (acute) exacerbation (principal); E11.9 Type 2 diabetes mellitus without complications; I10 Essential (primary) hypertension; G47.30 Sleep apnea, unspecified; F17.200 Nicotine dependence, unspecified, uncomplicated; Z88.2 Allergy status to sulfonamides; Z88.8 Allergy status to other drugs, medicaments and biological substances; Z79.899 Other long term (current) drug therapy; Z79.4 Long term (current) use of insulin; Z79.82 Long term (current) use of aspirin
CPT/HCPCS: 94640; 99285-25; J7512

== ENCOUNTER 2023-01-12 21:42 | Inpatient (IN) | payer MEDICARE, OTHER ==
[~2023-01-12] VITALS: Ht 165.1 cm; Wt 120.4 kg
[~2023-01-12 21:42] MED LIST changes: -ACULAR5 ML OP; +ACULAR5 ML OS; +ALPHA LIPOIC A600 M1 PO; -ASPIRIN81 MG PO; +BENZONATATE100 MG PO; +IPRATROPIU0.2 MG/1 M INH; -LIPOIC ACID25 GM PO; +LO-DOSE ASPIRIN81 MG PO
--- OUTSIDE RECORDS SUMMARY | 2023-01-12 21:44 | XMS ---
PreManage Notification: ИВАН CORONEL Security Caramel Cutter Hand Events No recent Security Events currently on file CRITERIA MET - [facility] - 2 Visits in 30 Days - [facility] CARE PROVIDERS JESS NICHOLAS Internal Medicine: Cardiovascular Disease 11/07/2019-Current PHONE: Unknown LUCAS VALLEJO Physician Follow Up Rep 11/12/2021-Current PHONE: [phone] [facility] has no Care Guidelines for this patient. Care History Medical/Surgical 02/20/2021 [facility] - PATIENT HAS A FARMER AND GRAZIER DR NICHOLAS AT [facility] CARDIOLOGY- [phone] - LAST APT WITH FARMER AND GRAZIER 07/05/2020 NEXT APT SCHEDULED 02/28/2021 - RECENT ED VISIT RECORDS SENT TO FARMER AND GRAZIER FOR REVIEW PER REQUEST. 01/28/2021 [facility] - PATIENT WAS LAST SEEN BY PCP NOVEMBER 2020 AND HAD A VIRTUAL VISIT WITH PROVIDER DECEMBER 2020. PROVIDER OFFICE JUST RECEIVED PATIENT RECENT ED VISIT NOTE AND WILL CONTACT PATIENT TODAY FOR A FOLLOW UP APT. E.D. VISIT COUNT (12 MO.) [address] [facility] TOTAL 5 NOTE: Visits indicate total known visits. ED/UCC VISIT TRACKING (12 MO.) 01/12/2023 21:42 [facility] [place] TYPE: Emergency COMPLAINT: - CONFUSION,WEAKNESS 01/01/2023 13:44 [facility] [place] TYPE: Emergency COMPLAINT: - COUGH DIAGNOSES: - Chronic obstructive pulmonary disease with (acute) exacerbation - Cough, unspecified - Other alf (current) drug therapy - Essential (primary) hypertension - Allergy status to sulfonamides - group home (current) use of aspirin - group home (current) use of insulin - Sleep apnea, unspecified - Type 2 diabetes mellitus without complications - Allergy status to other drugs, medicaments and biological substances - Nicotine dependence, unspecified, uncomplicated 12/26/2022 10:37 [facility] [place] TYPE: Emergency COMPLAINT: - COUGH, CHEST PRESSURE, DIZZY DIAGNOSES: - Essential (primary) hypertension - Unspecified asthma, uncomplicated - dedicated intermodal truck driver (current) use of aspirin - Allergy status to other drugs, medicaments and biological substances - Other termite control service representative (current) drug therapy - Sleep apnea, unspecified - Unspecified atrial fibrillation - Cough, unspecified - Allergy status to sulfonamides - Nicotine dependence, unspecified, uncomplicated - Acute upper respiratory infection, unspecified - dedicated intermodal truck driver (current) use of anticoagulants - dedicated intermodal truck driver (current) use of insulin - Type 2 diabetes mellitus without complications - Contact with and (suspected) exposure to COVID- 04/10/2022 03:15 [facility] [place] TYPE: Emergency COMPLAINT: - POST OP PROBLEM DIAGNOSES: - Other complications of procedures, not elsewhere classified, initial encounter - Type 2 diabetes mellitus without complications - group home (current) use of aspirin - Other intraoperative and postprocedural complications and disorders of the musculoskeletal system - dedicated intermodal truck driver (current) use of insulin - Allergy status to other drugs, medicaments and biological substances - Sleep apnea, unspecified - Essential (primary) hypertension - Nicotine dependence, unspecified, uncomplicated - Unspecified atrial fibrillation - Unspecified asthma, uncomplicated - Restless legs syndrome - Other alf (current) drug therapy - Allergy status to sulfonamides - dedicated intermodal truck driver (current) use of anticoagulants 03/26/2022 09:35 [facility] [place] TYPE: Emergency COMPLAINT: - POST SURGERY BLEEDING DIAGNOSES: - Allergy status to sulfonamides - dedicated intermodal truck driver (current) use of oral hypoglycemic drugs - dedicated intermodal truck driver (current) use of aspirin - Type 2 diabetes mellitus without complications - Unspecified atrial fibrillation - Nicotine dependence, unspecified, uncomplicated - dedicated intermodal truck driver (current) use of insulin - Essential (primary) hypertension - group home (current) use of anticoagulants - Sleep apnea, unspecified - Postprocedural hemorrhage of a musculoskeletal structure following a musculoskeletal system procedure - Other alf (current) drug therapy INPATIENT VISIT TRACKING (12 MO.) 04/08/2022 13:50 [facility] [place] TYPE: Surgery COMPLAINT: - SHOULDER ARTHROPLASTY, TOTAL, REVISION DIAGNOSES: - SHOULDER ARTHROPLASTY, TOTAL, REVISION 03/25/2022 06:50 [facility] [place] TYPE: Surgery DIAGNOSES: - Primary osteoarthritis, right shoulder [email or web address]
--- NOTE | 2023-01-13 03:49 | NUR ---
pt ARRIVES FROM ER VIA WHEELCHAIR WITH STRIP CUTTING MACHINE OPERATOR. AMBULATORY TO STANDING SCALE AND HOSPITAL BED. ASSESSMENT COMPLETE. ALERT AND ORIENTED. NIH SCORE 1. ATAXIA LEFT ARM. BEDSIDE SWALLOW EVAL WNL. PO SNACK PROVIDED. BED ALARM ON. pt ORIENTED TO CALL LIGHT AND HOSPITAL BED, ROOM.
--- NOTE | 2023-01-13 04:54 | NUR ---
CHECKED ON pt. RESTING IN BED AWAKE. ASSISTED pt WITH TV CHANNELS, GUIDE PROVIDED. LIGHTS OFF IN ROOM. NO ADDITIONAL REQUESTS. BED ALARM ON.
--- NOTE | 2023-01-13 06:16 | NUR ---
pt SLEEPING, AWAKENS TO VOICE. VSS. DENIES TOILETING NEEDS. INSTRUCTED TO CALL BEFORE OUT OF BED. CALL LIGHT IN REACH. BED ALARM ON.
--- NOTE | 2023-01-13 06:41 | NUR ---
PHONE CALL TO MD, UPDATED ON MORNING BLOOD GLUCOSE WITH LAB DRAW. TELEPHONE ORDER RECIEVED FOR INSULIN, REPEATED BACK TO VERIFY. EMAR UPDATED. UPDATED ON URINE RESULTS. MD TO EVALUATE pt.
[2023-01-13] MEDS ORDERED: JARDIANCE10 MG PO (07:22)
[2023-01-13] MEDS ORDERED: ADVAIR HFA 115-12 GM INH (07:27)
--- NOTE | 2023-01-13 07:42 | NUR ---
REPORT RECIEVED FROM JANIE REDDING PT RESTING WITH EYES CLOSED.
--- NOTE | 2023-01-13 09:04 | EKG ---
[facility] [address] [facility] [place] [address] Signed Atrial fibrillation Low voltage QRS Nonspecific ST and T wave abnormality Abnormal ECG When compared with ECG of 26-DEC-2022 12:02, T wave inversion now evident in Lateral leads Confirmed by Kavin Silverman MD () on 01/13/2023 9:04:49 AM Electronically Signed By: KAVIN SILVERMAN MD 01/13/23 0904 PATIENT NAME: ИВАН CORONEL Electrocardiogram DATE OF : 59 PHYSICIAN: KAVIN SILVERMAN MD REPORT #: [id number] REPORT IS CONFIDENTIAL AND NOT TO BE RELEASED WITHOUT AUTHORIZATION
--- NOTE | 2023-01-13 09:25 | NUR ---
JEWELS PT. ASSISTED WITH SOCKS. PT UP TO RESTROOM WITH URGENCY. MRI TO COME SHORTLY.
--- NOTE | 2023-01-13 11:02 | NUR ---
IN ROOM WITH PT. MORNING MEDICATION GIVEN. PT RESTING IN BED WORKING WITH OCCUPATIONAL THERAPIST ADIEL. PT HAS CALL LIGHT WITHIN REACH AND BEDRAIL UP FOR SAFETY. PT DENIES NEEDS AT THIS TIME.
--- NOTE | 2023-01-13 12:30 | NUR ---
ADMININSTER INSULIN WITH RN STUDENT TINO. PT TOLERATED WELL AND STATES THAT SHE HAS NOT FELT WELL ENOUGH THE LAST FEW DAYS TO TAKE HER INSULIN. EXPLAINED THAT HER A1C IS EXCEPTIONALLY HIGH AND THAT WOULD BE FROM MORE TIME THAN A COUPLE OF DAYS. PT STATES SHE DOES NOT WATCH HER DIET BUT IS AWARE SHE SHOUL.D. EDUCATION GIVEN.
[2023-01-13] MEDS ORDERED: 8HR ARTHRITIS650 M1 PO (13:32)
[2023-01-13] MEDS ORDERED: VITAMIN B122500 MCG PO (13:36)
[2023-01-13] MEDS ORDERED: ZESTRIL10 MG PO (13:38)
[2023-01-13] MEDS ORDERED: POTASSIUM CHLO10 ME1 PO (13:39)
[2023-01-13] MEDS ORDERED: NYSTATIN15 GM TOP (13:40)
--- NOTE | 2023-01-13 13:41 | NUR ---
MED REC COMPLETE
--- NOTE | 2023-01-13 14:44 | NUR ---
TOOK PATIENT A LIST OF NURSING HOMES IN THE AREA. PATIENT WANTS TO TALK TO HER FAMILY ABOUT PLACEMENT TO SNF OR GOING HOME TO [place] WHERE SHE LIVES WITH HER SISTER. STORMY HAS AGORA PHOBIA AND FEELS SAFE AT HOME IN HER [place].
--- NOTE | 2023-01-13 16:36 | NUR ---
PT SITTING ON BED talking on phone. pt states she feels like she might have rice stuck where her uvula removed. states she will gargle with her water.
--- NOTE | 2023-01-13 18:28 | NUR ---
PATIENT LAYING IN BED. VITALS AND I&O'S CHARTED. PATIENT COMPLAINED OF HER LEGS ACHING AND ASKED IF THEIR WAS ANYTHING SHE COULD HAVE FOR THAT, RN NOTIFIED. CALL LIGHT IN REACH. NO FURTHER NEEDS AT THIS TIME.
--- NOTE | 2023-01-13 18:35 | NUR ---
PT CALLED FOR 10/10 LEG PAIN. GIVEN TYLENOL.
--- NOTE | 2023-01-13 19:34 | NUR ---
RECEIVED REPORT FROM DAY SHIFT RN. PATIENT IS RESTING IN BED WATCHING TV. PATIENT DENIES ANY NEEDS AT THIS TIME. CALL LIGHT IN REACH.
--- NOTE | 2023-01-13 22:00 | NUR ---
PATIENT ASSESMENT COMPLETED. PATIENTS VITALS TAKEN AND RECORDED. INTAKE AND OUTPUT RECORDED. PATIENTS BS TAKEN AND RECORDED. PATIENTS PM MEDS GIVEN PER ORDER. PATIENT REPORTS PAIN IN HER LOW EXT THAT IS CHRONIC, SHEDULED MEDS GIVEN PER ORDER. PATIENTS IV FLUSHED AND SL PER ORDER. PATIENT PROVIDED WITH FRESH ICE WATER. PATIENT DENIES ANY FURTHER NEEDS NOTED. CALL LIGHT IN REACH. PATIENT IS FORGETFUL AT TIMES. BED ALARM PLACED ON FOR SAFETY.
--- NOTE | 2023-01-13 23:07 | NUR ---
call light answered, pt reports pain in her feet and states, "it feels like there's no cushion in my feet". pt medicated by primary rn regarding neuropathy/rls, unable to have prn tylenol until approx 2300, pt verbalized understanding. pt declined warm blankets wrapping ble, stating, "it hurts if anything touches them". ble elevated in bed with pillows x2 and warm blanket provided with lower portion hanging over the foot of the bed as not to touch pt's feet. no additional needs, bed alarm on and primary rn aware. call light in reach. prn melatonin offered, but declined.
--- NOTE | 2023-01-13 23:45 | NUR ---
rounded on pt following recent report of pain in ble, pt was resting in bed with eyes closed. on ra, rr even and unlabored, no outward distress or signs of pain noted, bed alarm remains on and call light in reach.
--- NOTE | 2023-01-14 00:10 | NUR ---
PATIENT IS RESTING IN BED WITH EYES CLSOED, RR 19. CALL LIGHT IN REACH. BED ALARM ON FOR SAFETY.
--- NOTE | 2023-01-14 02:15 | NUR ---
PATIENTS VITALS TAKEN AND RECORDED. INTAKE AND OUTPUT RECORDED. PATIENT RATES PAIN IN HER BILAT LOW EXT AT A 5/10, PRN MEDICATION GIVEN PER ORDER. FRESH ICE WATER PROVIDED. NO FURTHER NEEDS NOTED. CALL LIGHT IN REACH. BED ALARM ON FOR SAFETY.
--- NOTE | 2023-01-14 04:06 | NUR ---
PATIENT IS RESTING IN BED WITH EYES CLOSED. PATIENT IS ON TELE #2 AND HR IS 70. CALL LIGHT IN REACH. BED ALARM ON FOR SAFETY.
--- NOTE | 2023-01-14 05:31 | NUR ---
vs and i&o's collected, pt up to void-voided 300mls urine. pt back to bed, slow moving. no additional needs or concerns, call light in reach and bed alarm resumed.
--- NOTE | 2023-01-14 06:02 | NUR ---
PATIENTS VITALS TAKEN AND RECORDED. PATIENT UP TO BR A SBA W/FWW. PATIENT ABLE TO VOID. PATIENT IS BACK IN BED RESTING. INTAKE AND OUTPUT RECORDED. FRESH ICE WATER PROVIDED. IV FLUSHED AND SL PER ORDER. PATIENT DENIES ANY FURTHER NEEDS. CALL LIGHT IN REACH. BED ALARM ON FOR SAFETY.
--- NOTE | 2023-01-14 08:17 | NUR ---
CBG TAKEN BY THIS RESIDENCE DIRECTOR, REPORTED TO RN. PT WAS LYING IN BED AND COMPLAINED ABOUT PAIN IN R LEG AND REFUSED TO GET UP IN TO CHAIR. RN NOTIFIED.
--- NOTE | 2023-01-14 08:30 | NUR ---
REPORT RECEIVED FROM NIGHT RN AND PT CARE RESUMED. PT. IS ALERT AND ORIENTED TO ALL BUT PLACE. SHE IS FORGETFULL AND REPEATEDLY TELLS THE SAME STORY. SHE C/O PAIN IN RLE WITH MOVEMENT. SHE REPEATEDLY STATES SHE THINKS SHE HIT IT ON HER BED AT HOME. NO BRUISING, REDNESS OR SWELLING NOTED AT EXTREMITY. ASSESSMENT COMPLETED AND MEDS ADMIN. BED ALARM ON. PT. LEFT RESTING WITH CALL LIGHT IN REACH.
--- NOTE | 2023-01-14 08:43 | NUR ---
PATIENT IS SITTING UP IN BED EATING. PATIENT STATES SHE IS NOT INTERESTED IN GOING TO A SNF. PATIENT SAID SHE TALKED TO HER SISTER AND SHE IS WILLING TO HELP HER NEEDED SINCE HER SISTER LIVES WITH THE PATIENT. DISCUSSED PATIENT'S AGORA PHOBA. PATIENT REFUSES HELP FOR HER AGRA PHOBA.
--- NOTE | 2023-01-14 14:00 | NUR ---
PT RESTING IN BED WITH EYES CLOSED ON LEFT SIDE. RESPIRATIONS ARE EVEN AND UNLABORED. CALL LIGHT IN REACH.
--- NOTE | 2023-01-14 14:58 | NUR ---
ROUNDING ON PT. SHE DENIES PAIN. RESTING IN BED WITH ALARM ON AND CALL LIGHT IN REACH.
--- NOTE | 2023-01-14 19:05 | NUR ---
SHIFT REPORT RECEIVED FROM DAYSHIFT RN ANDRÉS AT BEDSIDE, BED ALARM ON AND FAMILY IN ROOM. NO NEEDS OR CONCERNS VERBALIZED, pt ON RA. RR EVEN AND UNLABORED, CALL LIGHT IN REACH AND BOARD UPDATED. POC DISCUSSED.
--- NOTE | 2023-01-14 19:12 | NUR ---
SHIFT REPORT RECEIVED FROM NAMRATA BOWEN. THIS RN ROUNDED ON pt AT 1945, pt REPORTS CONTINUED NAUSEA AND STATED, "I ASKED THEM EARLIER TO PUT ME OUT". POC DISCUSSED WITH pt. THERAPEUTIC COMMUNICATION PROVIDED. CALL LIGHT IN REACH, WILL MONITOR. pt RECENTLY MEDICATED WITH PRN NAUSEA MEDICATION.
--- NOTE | 2023-01-14 20:30 | NUR ---
ROUNDED ON pt, pt RESTING IN BED WITH EYES CLOSED, ON RA. RR EVEN AND UNLABORED. NO DISTRESS NOTED, BED ALARM ON AND CALL LIGHT IN REACH.
--- NOTE | 2023-01-14 22:15 | NUR ---
ASSESSMENT COMPLETE, pt DROWSY BUT AWAKENS TO VOICE. VSS, pt ON RA. pt DENEIS PAIN AND NAUSEA, REPORTS BASELINE NUMBNESS AND TINGLING TO BLE, CHRONIC PER pt. pt RECENTLY MEDICATED WITH EVENING MEDS BY JANIE HOWARD. IV SITE WNL, SALINE LOCKED. pt REPORTS NEED TO VOID, pt UP SBA WITH FWW TO VOID. JANIE HOWARD IN ROOM TO ASSIST pt BACK TO BED.
--- NOTE | 2023-01-14 22:46 | NUR ---
dr lara made aware of evening accucheck result of 399-taken by ivet martinez per md parameters. pt received insulin ss and scheduled evening long acting insulin. no new orders received at this time, chargerivet galarza also updated.
--- NOTE | 2023-01-14 23:00 | NUR ---
ROUNDED ON pt, pt RESTING IN BED, EYES CLOSED ON RA. RR EVEN AND UNLABORED. NO DISTRESS NOTED. BED ALARM ON FOR SAFETY. CALL LIGHT IN REACH.
--- NOTE | 2023-01-15 00:14 | NUR ---
ROUNDED ON pt, pt RESTING IN BED WITH EYES CLOSED, ON RA. RR EVEN AND UNLABORED. BED ALARM ON AND CALL LIGHT IN REACH.
--- NOTE | 2023-01-15 01:17 | NUR ---
ROUNDED ON pt, pt CONTINUES TO REST IN BED WITH EYES CLOSED, RR EVEN AND UNLABORED. CALL LIGHT IN REACH AND BED ALARM IN PLACE FOR SAFETY.
--- NOTE | 2023-01-15 02:41 | NUR ---
ROUNDED ON pt WHILE SLEEPING IN BED, EYES CLOSED AND REMAINS ON RA. RR EVEN AND UNLABORED, NO DISTRESS NOTED. BED ALARM ON AND CALL LIGHT IN REACH.
--- NOTE | 2023-01-15 03:33 | NUR ---
prn accucheck remains elevated but trending down, result in the 280's. pt a/o to all but date- easily reoriented. no acute changes to assessment, call light in reach and bed alarm on. pt denies need to void.
--- NOTE | 2023-01-15 05:40 | NUR ---
VS AND I&O'S COMPLETE. FRESH WATER PROVIDED. pt UP SBA WITH FWW WITH JANIE HOWARD TO VOID.
--- NOTE | 2023-01-15 06:14 | NUR ---
pt HAD UNEVENTFUL NIGHT, SLEPT FOR MOST OF THE NIGHT. SBA WITH FWW, BED ALARM ON FOR SAFETY. VSS, pt SALINE LOCKED. ADA DIET WITH SCHEDULED ACCUCHECKS, BLOOD SUGARS ELEVATED AND MD AWARE OF HS CHECK OF 399.
--- NOTE | 2023-01-15 08:30 | NUR ---
REPORT RECEIVED FROM NIGHT RN AND PT CARE RESUMED. PT. IS DROWSY BUT AWAKENS TO VOICE. ORIENTED TO ALL BUT DATE. ASSESSMENT COMPLETED. PT. C/O DOUBLE VISION AT TIMES, BUT OTHER EMERY NO NEW NEURO SX NOTED. IV LEAKING AND REMOVED WITH CATH INTACT. PT. ASSISTED WITH SITTING AT EOB FOR BREAKFAST. SHE REFUSES TO MOVE TO CHAIR. LEFT RESTING WITH CALL LIGHT IN REACH.
--- NOTE | 2023-01-15 10:22 | NUR ---
2 IV STARTS UNSUCCESSFUL BY THIS NURSE. CHARGE IN THE ROOM TO START IV.
--- NOTE | 2023-01-15 10:45 | NUR ---
In and spoke with Rin. She immediately lets me know she does not want placement. I let her know, I am just checking to make sure she has everything she needs. She denies needs, states she would consider a commode and a walker. She is aware of [facility] as she is not sure she would use. She plans on dc to home with her sister when cleared medically. She is not medically cleared as of today.
--- NOTE | 2023-01-15 13:45 | NUR ---
PT. C/O ONGOING RLE PAIN. LIMB ASSESSED. RLE NOW DUSKY, COOL, POOR CAP REFILL COMPARED TO EARLIER ASSESSMENT AND LLE. DOPPLER USED AND UNABLE TO FIND PEDAL OR TIBIAL PULSES. CHARGE CONFIRMED. MD UPDATED AND ORDER GIVEN TO MONITOR AND IMAGING.
--- NOTE | 2023-01-15 14:41 | NUR ---
in room with us for r leg scan - cold foot, pain in r tejeda, - pt iv left ac is laying in bed - turned off pump -car cleaning supervisor called to place new iv. RN assisted US tech to call Dr. Richardson to update on us and waiting on official report. pt resting in bed - gabapentin given per order.
--- NOTE | 2023-01-15 15:58 | NUR ---
PT. UPDATED ON POC AND TRANSFER PLAN. DISCUSSED S/SX TO ALERT RN ABOUT. PT. VOICED UNDERSTANDING WILL CONTINUE TO MONITOR.
--- NOTE | 2023-01-15 16:21 | NUR ---
PT. WEIGHT OBTAINED FOR HEPARIN DRIP. PT. QUESTIONS ANSWERED. DENIES NEEDS AT THIS TIME. LEFT RESTING WITH CALL LIGHT IN REACH.
--- NOTE | 2023-01-15 17:05 | NUR ---
Notified by staff, pt has a clot in her leg and maybe transferred to a higher level of care. No change in need from CM.
--- NOTE | 2023-01-15 17:52 | NUR ---
RLE ASSESSED. SENSATION INTACT. REMAINS COOL AND RED. PT. DENIES PAIN. NO OTHER NEW NEURO DEFICITS NOTED. WILL CONTINUE TO MONITOR.
--- NOTE | 2023-01-15 19:10 | NUR ---
REPORT RECEIVED FROM JANIE BOWEN. PT LAYING IN BED WITH EYES CLOSED. PT AWAKENS WHEN ADDRESSED AND LIGHT TOUCH TO SHOULDER. PT REPORTS NO OTHER NEEDS AT THIS TIME. CALL LIGHT IN REACH. BED ALARM ON.
--- NOTE | 2023-01-15 19:38 | NUR ---
SPOKE AND CLARIFIED WITH DR WALL REGARDING HEPARIN DRIP PROTOCOL, IF HEPARIN BOLUS IS INDICATED PER LABS/PROTOCOL TO GIVE BOLUS.
--- NOTE | 2023-01-15 20:44 | NUR ---
PER HEPARIN DRIP PROTOCOL, CBC AND PLATELETS LAB TO BE ORDERED AFTER 24HR START OF DRIP. ORDERS PLACED BY THIS RN, MD PETERSON AND RADHA'ED.
--- NOTE | 2023-01-15 20:58 | NUR ---
IN TO ADMINISTER MEDICATIONS, SEE MAR. PT SITTING UP IN BED WATCHING TV. PT TAKES PO MEIDCATIONS WITH NO ISSUES. ASSESSMENT COMPLETE. LUNG SOUNDS DIMINISHED IN RLL AND LLL. CLEAR IN RUL AND OZIEL. PT REPORTING PAIN 10/10 IN RLE. BOWEL TONES ACTIVE. VITALS AND I&OS COMPLETE. IV INFUSING WNL. PT DENIES ANY OTHER NEEDS AT THIS TIME. CALL LIGHT IN REACH. BED ALARM ON.
--- NOTE | 2023-01-15 22:51 | NUR ---
IN TO ROUND ON PT. PT SEMI-FOWLERS WITH EYES CLOSED. RR EVEN AND UNLBAORED. NO NEEDS IDENTIFIED AT THIS TIME. CALL LIGHT IN REACH. BED ALARM ON.
--- NOTE | 2023-01-15 23:48 | NUR ---
IN WITH KIMBERLY Buck RN TO VERIFY PUMP SETTINGS. NEURO ASSESSMENT COMPLETE. PT A&O TO SELF, MONTH, YEAR AND PLACE. REDNESS TO RLE WITH MOTTELING NOTED. PT SENSATION INTACT. PEDAL PULSE NOT PALPABLE. PT DENIES ANY OTHER NEEDS AT THIS TIME. CALL LIGHT IN REACH. BED ALARM ON.
--- NOTE | 2023-01-15 23:48 | NUR ---
RESULTS OF aPTT SHOW 62.1. PER HEPARIN DRIP PROTOCOL, NO TITRATION NEEDED AND HEPARIN DRIP REMAINS INFUSING @ 1400 UNITS/HR PER PROTOCOL, HEPARIN PUMP SETTINGS VERIFIED BY PRIMARY RN IKER ALONG WITH THIS RN AND REIMBURSEMENT MANAGER INEZ. PRIMARY RN REMAINS IN ROOM FOR ASSESSMENT. PRIMARY RN TO PLACE ORDER FOR aPTT FOR 0520 THIS MORNING PER PROTOCOL.
--- NOTE | 2023-01-16 00:11 | NUR ---
IN TO ROUND ON PT. PT LAYING IN BED SEMI-FOWLERS WITH EYES CLOSED. RR EVEN AND UNLABORED. NO NEEDS IDENTIFIED AT THIS TIME. CALL LIGHT IN REACH. BED ALARM ON.
--- NOTE | 2023-01-16 01:28 | NUR ---
IN TO ROUND ON PT. PT LAYING ON RIGHT SIDE. RR EVEN AND UNLABORED. IV INFUSING WNL. NO NEEDS IDENTIFIED AT THIS TIME. CALL LIGHT IN REACH. BED ALARM ON.
--- NOTE | 2023-01-16 02:12 | NUR ---
IN TO ROUND ON PT. PT LAYING SEMI-FOWLERS IN BED WITH EYES CLOSED. RR EVEN AND UNLABORED. IV INFUSING WNL. NO NEEDS IDENTIFIED AT THIS TIME. CALL LIGHT IN REACH. BED ALARM ON.
--- NOTE | 2023-01-16 03:02 | NUR ---
IN IV PUMP ALARMING, RESOLVED. ASSESSMENT COMPLETE. LUNG SOUNDS CLEAR IN RUL AND OZIEL. DIMINISHED IN RLL AND LLL. BOWEL TONES ACTIVE. PT DENIES PAIN AT THIS TIME. RLE REDNESS NOTED WITH SOME MOTTELING. RLE COOL TO TOUCH. PEDAL PULSE NOT PALPABLE. PT A&O TO SELF, MONTH, YEAR, PLACE AND DAY. IV INFUSING WNL. PT DENIES ANY OTHER NEEDS AT THIS TIME. CALL LIGHT IN REACH. BED ALARM ON.
--- NOTE | 2023-01-16 05:20 | NUR ---
THIS RN TALKED WITH DR. WALL TO CLARIFY PTs HEPARIN DOSING ORDERS. UPDATED ORDERS PER PROTOCAL, VERIFIED WITH READBACK.
--- NOTE | 2023-01-16 06:00 | NUR ---
SPOKE WITH PEDRO Winter FROM TELEPHARMACY TO CONFIRM WEIGHT CALCULATIONS ON NEW DVT HEPARIN PROTOCOL, PER PEDRO Winter WEIGHT CALCULATIONS ARE CORRECT AND SHE RECOMMENDS CONTINUING TO FOLLOW HEPARIN DRIP PER PROTOCOL AND TITRATE HEPARIN DRIP TO 1500 UNITS/HR. PRIMARY RN UPDATE AND IN ROOM TO TITRATE DIRECTED.
--- NOTE | 2023-01-16 06:18 | NUR ---
IN TO TITRATE HEPARIN DRIP WITH KATIA Rocha RN. TITRATED TO 1500 UNITS/HR. PT REPORTING PAIN 10/10 IN RLE. PRN TYLENOL ADMINISTERED, SEE MAR. PT TAKES PO MEDICATION WITH NO ISSUES. PT REPORTS NO OTHER NEEDS AT THIS TIME. CALL LIGHT IN REACH. BED ALARM ON.
--- NOTE | 2023-01-16 08:00 | NUR ---
clarified aptt goal with dr lara, verbal read back to confirm aptt goal is 60-90 seconds. spoke with ricky in pharmacy, rciky to customize heparin scale. per ricky, okay to leave heparin drip at current rate of 1500 units/hr until next lab draw.
--- NOTE | 2023-01-16 08:00 | NUR ---
REPORT RECEIVED FROM NIGHT RN AND PT CARE RESUMED. PT. IS ALERT AND ORIENTED TO ALL. SHE REPORTS 3/10 PAIN IN RLE. ASSISTED WITH REPOSITIONING. DOPPLER USED TO ASSESS PULSES IN RLE. TIBIAL PULSE PRESENT, BUT IRREGULAR. PEDAL PULSE ABSENT. RLE IS CYANOTIC, PAINFUL AND COOL. SENSATION INTACT IN ALL EXTREMITITES AT THIS TIME. ASSESSMENT COMPLETED. HEPARIN DRIP CHECKED BY 2 RNS. STANDING WEIGHT OBTAINED. CALL LIGHT IN REACH AND ALARM ON.
--- NOTE | 2023-01-16 08:03 | NUR ---
report received. pt in bed awake and oriented reading a book. reports pain 8 since pain medicaitons. call light in reach. denies needs.
--- NOTE | 2023-01-16 10:16 | NUR ---
PATIENT IN BED AFTER MEAL. VITALS AND I/O'S COMPLETED. CALL LIGHT WITHIN REACH.
--- NOTE | 2023-01-16 10:34 | NUR ---
ULTRASOUND GUIDED IV STARTED BY VEST MAKER. PT. TOLERATED WELL.
--- NOTE | 2023-01-16 10:40 | NUR ---
PATIENT IS WATCHING TV. PATIENT IS ON THE WAITLIST FOR [facility]. FOR CONTINUED CARE FOR ACUTE THROMBUS RIGHT LOWER LEG. PATIENT STATES HER AGROA-PHOBIA IS WELL CONTROLLED WHILE IN THE HOSPITAL. PATIENT STATES SHE HAS SUPPORTIVE FAMILY FOR FUTURE DISCHARGE NEEDS.
--- NOTE | 2023-01-16 12:08 | NUR ---
PT ON PHONE, SITTING IN CHAIR. HAD BRIEF VISIT, PT THANKED ME FOR COMING. SHE REMEMBERED ME FROM PREVIOUS ADMISSION. WILL FOLLOW
--- NOTE | 2023-01-16 12:40 | NUR ---
PT. aPTT LABS ARE 1215 ARE AT THERAPEUTIC AND DO NOT REQUIRE TITRATION PER MATRIX. MD UPDATED AND VERBAL ORDER GIVEN NOT TO RECHECK PTT LABS UNTIL THE A.M.
--- NOTE | 2023-01-16 13:31 | NUR ---
PTT AT 1215 45.6, HEPARIN BOLUS OF 5000 UNITS AND INCREASE OF HEPARIN DRIP BY 200 UNITS/HR TO 1700 UNITS/HR. VERIFIED BY [facility] AND CO SIGNED BY WILLIS Angelo RN. PTT ORDERED PLACED FOR 6 HOURS, 1914.
--- NOTE | 2023-01-16 14:00 | NUR ---
PATIENT IN BED AFTER MEAL. VITALS AND I/O'S COMPLETED. CALL LIGHT WITHIN REACH.
[2023-01-16] MEDS ORDERED: CEFTRIAXONE2 G1 IV (14:04)
--- NOTE | 2023-01-16 14:39 | NUR ---
ASSESSMENT COMPLETED PT. C/O RLE PAIN. EXTREMITY ASSESSED. TIBIAL PULSE FOUND WITH DOPPLER. PEDAL PULSE STILL ABSENT. SENSATION INTACT AND EXTREMITY IS STILL MOTTLED AT FOOT AND COOL. NEPHEW IN TO VISIT.
--- NOTE | 2023-01-16 15:21 | NUR ---
REPORT CALLED TO RN AT [facility]. AWAITING TRANSPORT
--- NOTE | 2023-01-16 15:54 | NUR ---
TRANSPORT HERE FOR PT. REPORT GIVEN. PT. LEFT VIA STRETCHER WITH HEPARIN DRIP INFUSING ON PUMP.
== END 2023-01-16 15:50 | disposition short-term general hospital (02) | DRG 65 ==
LOC: ED 21:42 → MS 21:43 → ED 01-13 01:30 → MS 01-14 15:12
PROVIDERS: ADMIT Family Medicine; ATTEND Internal Medicine
DX: I63.9 Cerebral infarction, unspecified (principal); E87.1 Hypo-osmolality and hyponatremia; I48.20 Chronic atrial fibrillation, unspecified; N17.9 Acute kidney failure, unspecified; I77.1 Stricture of artery; Z20.822 Contact with and (suspected) exposure to COVID-19; I10 Essential (primary) hypertension; Z66 Do not resuscitate; G25.81 Restless legs syndrome; G47.33 Obstructive sleep apnea (adult) (pediatric); E11.51 Type 2 diabetes mellitus with diabetic peripheral angiopathy without gangrene; I65.23 Occlusion and stenosis of bilateral carotid arteries; E11.65 Type 2 diabetes mellitus with hyperglycemia; E78.5 Hyperlipidemia, unspecified; I70.221 Atherosclerosis of native arteries of extremities with rest pain, right leg; J44.9 Chronic obstructive pulmonary disease, unspecified; F17.210 Nicotine dependence, cigarettes, uncomplicated; Z96.652 Presence of left artificial knee joint; Z98.1 Arthrodesis status; Z95.1 Presence of aortocoronary bypass graft; Z90.49 Acquired absence of other specified parts of digestive tract; Z98.890 Other specified postprocedural states; Z98.891 History of uterine scar from previous surgery; Z88.2 Allergy status to sulfonamides; Z88.8 Allergy status to other drugs, medicaments and biological substances; Z79.4 Long term (current) use of insulin; Z79.01 Long term (current) use of anticoagulants; Z79.52 Long term (current) use of systemic steroids; Z79.899 Other long term (current) drug therapy
CPT/HCPCS: 36415; 70450; 70496; 70498; 70551; 71045; 73610; 80053; 80061; 81001; 83036; 83735; 84484; 85025; 85730; 87088; 93005; 93010; 93306; 93880; 93926; 94640; 94760; 96374; 97110; 97116; 97162; 97165; 99285-25; A9270; J0696; J1644; J1815; J7121; Q9967; U0003

== ENCOUNTER 2023-01-24 22:45 | Emergency (ER) | payer MEDICARE, OTHER ==
[~2023-01-24] VITALS: Ht 165.1 cm; Wt 120.2 kg
[~2023-01-24 22:45] MED LIST changes: +8HR ARTHRITIS650 M1 PO; +ADVAIR HFA 115-12 GM INH; +CEFTRIAXONE2 G1 IV; +JARDIANCE10 MG PO; +NYSTATIN15 GM TOP; +VITAMIN B122500 MCG PO; +ZESTRIL10 MG PO
--- OUTSIDE RECORDS SUMMARY | 2023-01-24 22:51 | XMS ---
PreManage Notification: ИВАН CORONEL Security Control Officer Events No recent Security Events currently on file CRITERIA MET - [facility] - [facility] - 2 Visits in 30 Days CARE PROVIDERS JESS NICHOLAS Internal Medicine: Cardiovascular Disease 11/07/2019-Current PHONE: Unknown LUCAS VALLEJO Physician [employer] Set Up Operator 11/12/2021-Current PHONE: [phone] [facility] has no Care Guidelines for this patient. Care History Medical/Surgical 02/20/2021 [facility] - PATIENT HAS A B2B SALES EXECUTIVE DR NICHOLAS AT [facility]- [phone] - LAST APT WITH B2B SALES EXECUTIVE 07/05/2020 NEXT APT SCHEDULED 02/28/2021 - RECENT ED VISIT RECORDS SENT TO B2B SALES EXECUTIVE FOR REVIEW PER REQUEST. 01/28/2021 [facility] - PATIENT WAS LAST SEEN BY PCP NOVEMBER 2020 AND HAD A VIRTUAL VISIT WITH PROVIDER DECEMBER 2020. PROVIDER OFFICE JUST RECEIVED PATIENT RECENT ED VISIT NOTE AND WILL CONTACT PATIENT TODAY FOR A FOLLOW UP APT. E.D. VISIT COUNT (12 MO.) 5 [facility] TOTAL 5 NOTE: Visits indicate total known visits. ED/UCC VISIT TRACKING (12 MO.) 01/24/2023 22:47 [facility] TYPE: Emergency COMPLAINT: - R LEG POST SURGERY ISSUE AND CONFUSION 01/01/2023 13:44 [facility] TYPE: Emergency COMPLAINT: - COUGH DIAGNOSES: - Cough, unspecified - Other watermaster (current) drug therapy - Essential (primary) hypertension - Allergy status to sulfonamides - terminal gauger (current) use of aspirin - terminal gauger (current) use of insulin - Sleep apnea, unspecified - Type 2 diabetes mellitus without complications - Allergy status to other drugs, medicaments and biological substances - Nicotine dependence, unspecified, uncomplicated - Chronic obstructive pulmonary disease with (acute) exacerbation 12/26/2022 10:37 [facility] TYPE: Emergency COMPLAINT: - COUGH, CHEST PRESSURE, DIZZY DIAGNOSES: - Unspecified asthma, uncomplicated - intermediate (current) use of aspirin - Allergy status to other drugs, medicaments and biological substances - Other assisted (current) drug therapy - Sleep apnea, unspecified - Unspecified atrial fibrillation - Cough, unspecified - Allergy status to sulfonamides - Nicotine dependence, unspecified, uncomplicated - Acute upper respiratory infection, unspecified - terminal gauger (current) use of anticoagulants - intermediate (current) use of insulin - Type 2 diabetes mellitus without complications - Contact with and (suspected) exposure to COVID-19 - Essential (primary) hypertension 04/10/2022 03:15 [facility] TYPE: Emergency COMPLAINT: - POST OP PROBLEM DIAGNOSES: - Type 2 diabetes mellitus without complications - terminal gauger (current) use of aspirin - Other intraoperative and postprocedural complications and disorders of the musculoskeletal system - intermediate (current) use of insulin - Allergy status to other drugs, medicaments and biological substances - Sleep apnea, unspecified - Essential (primary) hypertension - Nicotine dependence, unspecified, uncomplicated - Unspecified atrial fibrillation - Unspecified asthma, uncomplicated - Restless legs syndrome - Other assisted (current) drug therapy - Allergy status to sulfonamides - terminal gauger (current) use of anticoagulants - Other complications of procedures, not elsewhere classified, initial encounter 03/26/2022 09:35 [facility] TYPE: Emergency COMPLAINT: - POST SURGERY BLEEDING DIAGNOSES: - terminal gauger (current) use of oral hypoglycemic drugs - intermediate (current) use of aspirin - Type 2 diabetes mellitus without complications - Unspecified atrial fibrillation - Nicotine dependence, unspecified, uncomplicated - terminal gauger (current) use of insulin - Essential (primary) hypertension - intermediate (current) use of anticoagulants - Sleep apnea, unspecified - Postprocedural hemorrhage of a musculoskeletal structure following a musculoskeletal system procedure - Other assisted (current) drug therapy - Allergy status to sulfonamides INPATIENT VISIT TRACKING (12 MO.) [facility] [facility] DIAGNOSES: - vascular compromise to right lower extremity - Other disorder of circulatory system - Pain in leg, unspecified - Cerebral infarction, unspecified 01/14/2023 15:12 [facility] TYPE: Medical Surgical COMPLAINT: - CVA DIAGNOSES: - intermediate (current) use of systemic steroids - Nicotine dependence, cigarettes, uncomplicated - Allergy status to other drugs, medicaments and biological substances - Presence of left artificial knee joint - Other specified postprocedural states - Hypo-osmolality and hyponatremia - Restless legs syndrome - Cerebral infarction, unspecified - Allergy status to sulfonamides - Arthrodesis status - intermediate (current) use of anticoagulants - Acquired absence of other specified parts of digestive tract - Chronic obstructive pulmonary disease, unspecified - History of uterine scar from previous surgery - Acute kidney failure, unspecified - intermediate (current) use of anticoagulants - Occlusion and stenosis of bilateral carotid arteries - Restless legs syndrome - Chronic obstructive pulmonary disease, unspecified - Other watermaster (current) drug therapy - Other watermaster (current) drug therapy - Contact with and (suspected) exposure to COVID-19 - Acquired absence of other specified parts of digestive tract - Type 2 diabetes mellitus with diabetic peripheral angiopathy without gangrene - Allergy status to other drugs, medicaments and biological substances - Hyperlipidemia, unspecified - Obstructive sleep apnea (adult) (pediatric) - terminal gauger (current) use of systemic steroids - intermediate (current) use of insulin - Do not resuscitate - Contact with and (suspected) exposure to COVID-19 - Presence of left artificial knee joint - intermediate (current) use of insulin - Essential (primary) hypertension - Stricture of artery - Do not resuscitate - Hypo-osmolality and hyponatremia - Occlusion and stenosis of bilateral carotid arteries - Type 2 diabetes mellitus with diabetic peripheral angiopathy without gangrene - Atherosclerosis of [place] arteries of extremities with rest pain, right leg - Presence of aortocoronary bypass graft - Other specified postprocedural states - Nicotine dependence, cigarettes, uncomplicated - Chronic atrial fibrillation, unspecified - Arthrodesis status - History of uterine scar from previous surgery - Stricture of artery - Allergy status to sulfonamides - Obstructive sleep apnea (adult) (pediatric) - Acute kidney failure, unspecified - Type 2 diabetes mellitus with hyperglycemia - Atherosclerosis of [place] arteries of extremities with rest pain, right leg - Essential (primary) hypertension - Presence of aortocoronary bypass graft - Type 2 diabetes mellitus with hyperglycemia - Chronic atrial fibrillation, unspecified - Hyperlipidemia, unspecified 04/08/2022 13:50 [facility] [place] TYPE: Surgery COMPLAINT: - SHOULDER ARTHROPLASTY, TOTAL, REVISION DIAGNOSES: - SHOULDER ARTHROPLASTY, TOTAL, REVISION 03/25/2022 06:50 [facility] [place] TYPE: Surgery DIAGNOSES: - Primary osteoarthritis, right shoulder [email or web address]
[2023-01-24] MEDS ORDERED: OXYCODONE HCL5 MG PO (23:00)
== END 2023-01-25 05:50 | disposition short-term general hospital (02) ==
LOC: ED 22:45
DX: I97.89 Other postprocedural complications and disorders of the circulatory system, not elsewhere classified (principal); I77.1 Stricture of artery; R41.0 Disorientation, unspecified; Z20.822 Contact with and (suspected) exposure to COVID-19; I10 Essential (primary) hypertension; E11.9 Type 2 diabetes mellitus without complications; G47.30 Sleep apnea, unspecified; J45.909 Unspecified asthma, uncomplicated; I48.91 Unspecified atrial fibrillation; F17.200 Nicotine dependence, unspecified, uncomplicated; Z88.2 Allergy status to sulfonamides; Z79.01 Long term (current) use of anticoagulants; Z79.899 Other long term (current) drug therapy; Z79.4 Long term (current) use of insulin; Z79.82 Long term (current) use of aspirin
CPT/HCPCS: 36415; 70450; 71045; 73706; 80053; 81003; 85025; 85610; 85730; 87502; 93926; 93971; 99285-25; C9803; J1644; Q9967; U0003

== ENCOUNTER 2023-02-25 02:11 | Emergency (ER) | payer MEDICARE, OTHER ==
[~2023-02-25] VITALS: Ht 165.1 cm; Wt 123.4 kg
[2023-02-25] MEDS ORDERED: CLEOCIN HCL300 MG PO (03:11)
[2023-02-25] MEDS ORDERED: TRAMADOL HCL50 MG PO (03:11)
== END 2023-02-25 03:40 | disposition home or self-care (01) ==
LOC: ED 02:11
DX: T81.41XA Infection following a procedure, superficial incisional surgical site, initial encounter (principal); E11.9 Type 2 diabetes mellitus without complications; I10 Essential (primary) hypertension; G47.30 Sleep apnea, unspecified; J45.909 Unspecified asthma, uncomplicated; I48.91 Unspecified atrial fibrillation; F17.200 Nicotine dependence, unspecified, uncomplicated; Z88.2 Allergy status to sulfonamides; Z88.8 Allergy status to other drugs, medicaments and biological substances; Z79.899 Other long term (current) drug therapy; Z79.4 Long term (current) use of insulin; Z79.82 Long term (current) use of aspirin
CPT/HCPCS: 36415; 73590; 80053; 85025; 85610; 99283-25